=== PATIENT | female | born 1955 | race Caucasian/White ===

== ENCOUNTER 2017-05-09 15:29 | Emergency (ER) | payer OTHER ==
[~2017-05-09] VITALS: Ht 154.9 cm; Wt 77.1 kg
[~2017-05-09 15:29] MED LIST: ADVAIR 100-501 EACH INH; GABAPENTIN300 M2 PO; HYDROXYZINE HCL25 M2 PO; IVERMECTIN PO; MEDROL4 M2 PO; NORCO 325 MG-51 TAB PO; PERMETHRIN60 GM TOP; PREDNISONE10 MG PO; VICODIN5-300 PO; ZOFRAN 4 MG TABL4 MG PO; ZOFRAN ODT4 MG PO
--- NOTE | 2017-05-09 15:55 | ED CARDIAC/CP/PALPITATIONS ---
History of Present Illness General Chief Complaint: General Adult Stated Complaint: MULITPLE COMPLAINTS Source: patient, old records, EMS Exam Limitations: poor historian Vital Signs & Intake/Output Vital Signs & Intake/Output Vital Signs Date Time Temp Pulse Resp B/P B/P Pulse O2 O2 Flow FiO2 Mean Ox Delivery Rate 05/09 2045 96.9 103 18 106/73 96 Room Air 05/09 1847 97.9 100 20 108/73 95 Room Air 05/09 1739 97.3 107 18 125/73 05/09 1612 Room Air 05/09 1546 98.6 102 22 141/67 95 Room Air Allergies Coded Allergies: metaxalone (Severe, SHOCK 11/08/16) naproxen (Intermediate, NAUSEA AND VOMITING 11/08/16) tramadol (Mild, NAUSEA 11/08/16) acetaminophen (From Percocet) (UNKNOWN 11/08/16) oxycodone (From Percocet) (UNKNOWN 11/08/16) NSAIDS (Non-Steroidal Anti-Inflamma (EXTREMELY WEAK 05/09/17) Reconcile Medications Baclofen 10 MG TABLET 1 TAB PO BID MUSCLE RELAXER (Reported) Dicyclomine Hydrochloride (Bentyl) 10 MG CAPSULE 1 CAP PO TID PRN abdominal pain Gabapentin 300 MG CAPSULE 1 CAP PO TID NERVE PAIN (Reported) Ivermectin 3 MG TABLET 5 TAB PO X1 MITES/SCABIES REPEAT IN 1 MONTH. Lidocaine 5 % ADH..PATCH 2 PAT TOP DAILY BACK PAIN (Reported) Omeprazole 20 MG CAPSULE.DR 1 CAP PO DAILY PRN heart burn Triage Note: PT BIBA FROM HOME WITH C/O CHEST PAIN AND SOB. PER EMS, PT WAS WHEEZING ON SCENE; NEBULIZER WITH GOOD EFFECT. UPON PT'S ARRIVAL IN ED, SHE DENIES CHEST PAIN, DESCRIBING IT "TIGHTNESS", BUT COMPLAINS ALSO OF EPIGASTRIC PAIN AND NAUSEA STARTING THIS MORNING, RIGHT-SIDED HEAD PAIN, BILATERAL EYE DISCOMFORT, AND "SKIN CRAWLING" RASH FOR WHICH SHE WAS TREATED IN THIS ED WITHIN THE PAST WEEK. Triage Nurses Notes Reviewed? yes Onset: Abrupt Duration: hour(s): (2-3), better Timing: single episode today Quality/Severity: moderate, dull, pressure Location: epigastric Radiation: no radiation Activities at Onset: none Prior Chest Pain/Card Workup: no prior chest pain Nitro Today/Relief: no nitro taken today Aspirin Today: no aspirin today Associated Symptoms: abdominal pain (epigastric pain), headache, shortness of breath, nausea/vomiting LMP (ages 10-50): post menopausal : No Patient currently breastfeeds: No HPI: 62-year-old female brought in by ambulance for evaluation of chest heaviness and shortness of breath. Patient reports that symptoms started suddenly approximately 2 or 3 hours before she presented. Heaviness is located in the epigastric area and does not radiate. She rates the pain initially as a 6 out of 10 now currently a 2 out of 10. She denies any known alleviating or aggravating factors. She has not take any medicine for the pain. She also reports shortness of breath, wheezing and coughing that started on the same time. Patient was given a DuoNeb by EMS in route with improvement. Patient reports associated nausea without any vomiting which improved with Zofran given by EMS in route. He should also reports abdominal distention. sHe is passing gas normally. Currently patient reports mild epigastric heaviness. Patient was seen emergency Department last week for possible bug bites. She was prescribed permethrin cream which she has used as directed. She still reports feelings of bugs crawling in her hair and itchy eyes. She has tried multiple treatments for this without any improvement. She denies any alcohol or illicit drug use. No fevers, hemoptysis, lower extremity edema, diarrhea, back pain, urinary symptoms or any other associated symptoms. (DELEMR LÓPEZ PA-C) Past History Travel History Traveled to [place] past 21 day No Medical History Any Pertinent Medical History? see below for history Neurological: migraine EENT: NONE Cardiovascular: NONE Respiratory: NONE Gastrointestinal: GERD Hepatic: NONE Renal: NONE Musculoskeletal: DJD OF SPINE AND NECK Psychiatric: depression Endocrine: NONE Blood Disorders: NONE Cancer(s): NONE RESEARCH CONSULTANT/Reproductive: NONE Surgical History Surgical History: CHOLY Psychosocial History What is your primary language Yoruba Family History Hx Contributory? Yes (DELMER LÓPEZ PA-C) Review of Systems Review of Systems Constitutional: Reports: see HPI, malaise, weakness. EENTM: Reports: no symptoms. Respiratory: Reports: see HPI, short of breath. Cardiovascular: Reports: see HPI, chest pain. GI: Reports: see HPI, abdominal pain, bloating, nausea, vomiting. Genitourinary: Reports: no symptoms. Musculoskeletal: Reports: no symptoms. Skin: Reports: no symptoms. Neurological/Psychological: Reports: no symptoms. Hematologic/Endocrine: Reports: no symptoms. Immunologic/Allergic: Reports: no symptoms. All Other Systems: Reviewed and Negative (MARIBEL DEAN,DELMER) Physical Exam Physical Exam General Appearance: well developed/nourished, no apparent distress, alert, awake , anxious, obese Head: atraumatic, normal appearance Eyes: Bilateral: normal appearance, PERRL, EOMI. Ears, Nose, Throat: normal pharynx, normal ENT inspection, hearing grossly normal Neck: normal inspection, supple, full range of motion, no midline tenderness Respiratory: chest non-tender, no respiratory distress, wheezing (MILD) Cardiovascular: regular rate/rhythm, normal peripheral pulses Peripheral Pulses: 2+ dorsalis pedis (R), 2+ dorsalis pedis (L) Gastrointestinal: normal bowel sounds, soft, no organomegaly, distention, tenderness (rlq, llq) Back: normal inspection, normal range of motion, no vertebral tenderness Extremities: normal inspection, normal capillary refill, normal range of motion, no edema Neurologic/Psych: no motor/sensory deficits, awake, alert, oriented x 3, normal gait, normal mood/affect Reflexes: 2+: knee (R), knee (L). Skin: intact, normal color, warm/dry Lymphatic: no anterior cervical verna Core Measures ACS in differential dx? Yes Severe Sepsis Present: No Septic Shock Present: No (MARIBEL DEAN,DELMER) Progress Differential Diagnosis: AMI, aortic dissection, cholecystitis, pancreatitis, pneumonia, pulmonary embolism, PUD/GERD, PVCs/PACs, respiratory failure, unstable angina, sbo, ibd Plan of Care: Orders Procedure Date/time Status TROPONIN LEVEL 05/09 1935 Complete EKG 05/09 193 Active Add-on Test (ER Only) 05/09 1607 Active LIPASE 05/09 1600 Complete C-REACTIVE PROTEIN 05/09 1600 Complete Telemetry/Quantitative Analyst 05/09 1534 Active TROPONIN LEVEL 05/09 1533 Complete D-DIMER 05/09 1533 Complete COMPREHENSIVE METABOLIC PANEL 05/09 1533 Complete CBC WITHOUT DIFFERENTIAL 05/09 1533 Complete B-TYPE NATRIURETIC PEP (BNP) 05/09 1533 Complete EKG 05/09 1533 Active Laboratory Tests 05/09/17 1928: Troponin I < 0.01 05/09/17 1600: Anion Gap 9, Estimated GFR > 60, BUN/Creatinine Ratio 22.0, Glucose 104 H, Calcium 9.0, Total Bilirubin 0.7, AST 30, ALT 58 H, Alkaline Phosphatase 144 H , Troponin I < 0.01, C-Reactive Prot, Quant < 0.5, Qiu-O-Tyovjgwkugs Pept 66.7, Total Protein 6.6, Albumin 3.9, Globulin 2.7, Albumin/Globulin Ratio 1.4, Lipase 84, D-Dimer High Sensitivty < 200, CBC w Diff NO MAN DIFF REQ, RBC 4.53, MCV 91.9, MCH 30.4, RDW 13.3, MPV 9.2, Gran % 68.4, Lymphocytes % 18.9 L, Monocytes % 10.0 H, Eosinophils % 2.0, Basophils % 0.7, Absolute Granulocytes 5.2, Absolute Lymphocytes 1.4, Absolute Monocytes 0.8 H, Absolute Eosinophils 0.2, Absolute Basophils 0.1, PUBS MCHC 33.0 05/09/17 1555: Lipase Cancelled 05/09/17 1533: Urine Color Cancelled, Urine Clarity Cancelled, Urine pH Cancelled, Ur Specific Drain Cancelled, Urine Protein Cancelled, Urine Ketones Cancelled, Urine Nitrite Cancelled, Urine Bilirubin Cancelled, Urine Urobilinogen Cancelled, Ur Leukocyte Esterase Cancelled, Ur Microscopic Cancelled, Urine Hemoglobin Cancelled, Urine Glucose Cancelled Patient will have basic blood work EKG and telemetry monitoring. Her abdomen is distended and diffusely tender to palpation. She will get a noncontrast CT of the abdomen and pelvis. Her d-dimer is less than 200 and suspicion for PE is low. 6:37 PM: CT of the abdomen and pelvis shows evidence of enteritis. No small bowel obstruction. Initial lab work is looking within normal limits. Patient have a repeat EKG and troponin to rule out acute coronary syndrome. Patient reports that she is having symptoms of acid reflux. She feels burning in her throat. She'll be given a GI cocktail and IV Protonix. We'll reevaluate her after meds are given. 8:34 PM: Patient is feeling completely better after GI cocktail and IV Protonix. Patient will be discharged home with Bentyl and omeprazole to use for symptoms. Advised her to follow up with her primary care doctor this coming week. Reviewed all results with patient. She is nontoxic-appearing and agrees with the plan. (MARIBEL DEAN,DELMER) Diagnostic Imaging: Viewed by Me: Radiology Read, CT Scan. Initial ED EKG: NORMAL SINUS RHYTHM WITH PVC Repeat EKG: unchanged Comments: PATIENT: DAVID ALMENDAREZ PRESENT AGE: 62 PATIENT ACCOUNT NO: [id number] : 55 LOCATION: ER ORDERING PHYSICIAN: DELMER LÓPEZ PA-C SERVICE DATE: 05/09/17 EXAM TYPE: RAD - XRY-PORTABLE CHEST XRAY EXAMINATION: XR PORTABLE CHEST CLINICAL INFORMATION: Chest pain, shortness of breath. COMPARISON: Chest x-ray 02/11/2013 TECHNIQUE: Portable frontal view of the chest was obtained. 3:55 PM FINDINGS: No significant abnormality is noted involving the heart, lungs, mediastinum, bony thorax or soft tissues. IMPRESSION: Unremarkable examination. DICTATED BY: CRISTINE MARTINEZ MD DATE/TIME DICTATED:05/09/171639 FLOOR CLEANER:SANDRA DATE/TIME TRANSCRIBED:05/09/171639 CONFIDENTIAL, DO NOT COPY WITHOUT APPROPRIATE AUTHORIZATION. PATIENT: DAVID ALMENDAREZ PRESENT AGE: 62 PATIENT ACCOUNT NO: [id number] : 55 LOCATION: [facility] ORDERING PHYSICIAN: DELMER LÓPEZ PA-C SERVICE DATE: 05/09/17 EXAM TYPE: CAT - CT ABD & PELVIS W/O IV CONTRAS CT ABDOMEN AND PELVIS WITHOUT CONTRAST CLINICAL INFORMATION: Distention and bilateral pelvic pain. COMPARISON: Abdominal CT 07/22/2015. TECHNIQUE: Multidetector volumetric imaging was performed from the superior aspect of the liver through the pubic symphysis. Sagittal and coronal reformatted images were obtained on the technologist's workstation. FINDINGS: The lung bases are clear. Limited evaluation of the unenhanced liver, spleen, adrenal glands, and pancreas reveals no definite abnormality. Gallbladder is surgically absent. The kidneys are symmetric in size without evidence of hydronephrosis or nephrolithiasis. The large and small bowel are normal in caliber without evidence of mechanical obstruction. There is a small periampullary duodenal diverticulum. Nonspecific fluid-filled small bowel loops throughout the abdomen without abnormal small bowel dilatation, findings that could reflect an underlying enteritis. No discrete transition point. Sigmoid diverticulosis without evidence of acute diverticulitis. The appendix is normal. There is no free air and there is no intra-abdominal free fluid. No mesenteric or retroperitoneal adenopathy. There is aortoiliac atherosclerotic calcification. The pelvic viscera are normal. No pelvic adenopathy. No free fluid within the pelvis. There are no acute osseous abnormalities. 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 No significant soft tissue abnormality. IMPRESSION: - Nonspecific fluid-filled small bowel loops throughout the abdomen without abnormal small bowel dilatation, findings that could reflect an underlying enteritis. No discrete transition point. - Sigmoid diverticulosis without evidence of acute diverticulitis. 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 DICTATED BY: MICHAEL NEWSOME MD DATE/TIME DICTATED:05/09/171822 FLOOR CLEANER:SANDRA DATE/TIME TRANSCRIBED:05/09/171822 CONFIDENTIAL, DO NOT COPY WITHOUT APPROPRIATE AUTHORIZATION. <Electronically signed in Other Vendor System> SIGNED BY: MICHAEL NEWSOME MD 05/09/17 8028 (DELMER LÓPEZ PA-C) Departure Departure Disposition: HOME OR SELF CARE Condition: Stable Clinical Impression Primary Impression: Abdominal pain Qualifiers: Abdominal location: epigastric Qualified Code: R10.13 - Epigastric pain Referrals: PATIENT HAS NO PRIMARY CARE DR (PCP/Family) Additional Instructions: Rest and drink plenty of fluids. Use Bentyl and omeprazole as needed for abdominal pain. Make a follow-up with her primary care doctor this coming week. Return to the emergency department with any concerns. Please go over all results of today's visit with your primary care doctor. Contact your primary care doctor to let them know you were here in the emergency room. There may be nonspecific findings which may not be related to your visit today here in the emergency room but may require further evaluation and chronic monitoring by your primary care doctor. If you had a laceration today the chance of foreign body always remains. You should follow-up with your primary care doctor for recheck in 3-5 days for a wound check. If you had an x-ray done there is a chance that a fracture could have been missed on initial read and you should follow-up with your primary care doctor for repeat x-rays if symptoms persist. If your blood pressure was elevated here in the emergency room please have rechecked by her primary care doctor within the next 48 hours by your primary care doctor. If you were prescribed a narcotic here in the emergency room or any type of controlled substances you're not allowed to drive while taking this medication or operate any type of heavy machinery. Narcotics can make you feel lightheaded dizziness nausea and can cause constipation. You may need to pickle solution maker a stool softener. Thank you for choosing [facility] emergency room. Please return to the emergency room immediately if you have any other concerns worsening of symptoms. Departure Forms: Customer Survey General Discharge Information Prescriptions: Current Visit Scripts Dicyclomine Hydrochloride (Bentyl) 1 CAP PO TID PRN abdominal pain #30 CAP Omeprazole 1 CAP PO DAILY PRN heart burn #30 CAP (DELMER LÓPEZ PA-C) PA/HYDRAULIC TECHNICIAN Co-Sign Statement Statement: ED Attending supervision documentation- x I saw and evaluated the patient. I have also reviewed all the pertinent lab results and diagnostic results. I agree with the findings and the plan of care as documented in the PA's/HYDRAULIC TECHNICIAN's documentation. [] I have reviewed the ED Record and agree with the PA's/HYDRAULIC TECHNICIAN's documentation. [] Additions or exceptions (if any) to the PAs/HYDRAULIC TECHNICIAN's note and plan are summarized below: [] (JUANITA SALAZAR,LAURA) Critical Care Note Critical Care Note Critical Care Time: non-applicable (DELMER LÓPEZ PA-C)
[2017-05-09 16:13] LABS: ABSOLUTE BASOPHIL COUNT 0.1 /CUMM (0.0-0.2); ABSOLUTE EOSINOPHIL COUNT 0.2 /CUMM (0.0-0.7); ABSOLUTE GRANULOCYTE CT 5.2 /CUMM (1.4-6.5); ABSOLUTE LYMPH COUNT 1.4 /CUMM (1.2-3.4); ABSOLUTE MONOCYTE COUNT 0.8 /CUMM (0.10-0.60); BASOPHIL % 0.7 % (0.0-2.0); GRANULOCYTE % 68.4 % (42.2-75.2); HEMATOCRIT 41.7 % (37-47); MEAN CORPUSCULAR HGB 30.4 PG (27.0-31.0); MEAN CORPUSCULAR VOLUME 91.9 FL (81.0-99.0); MEAN PLATELET VOLUME 9.2 FL (7.4-10.4); PLATELET COUNT 196 /CUMM (130-400); RBC DISTRIBUTION WIDTH 13.3 % (11.5-14.5); RED BLOOD CELL CT 4.53 /CUMM (4.20-5.40); WHITE BLOOD CELL COUNT 7.7 /CUMM (4.8-10.8)
[2017-05-09] MEDS ORDERED: BACLOFEN10 M1 PO (16:33)
[2017-05-09] MEDS ORDERED: LIDOCAINE1 EACH TOP (16:38)
--- NOTE | 2017-05-09 16:43 | RADIOLOGY REPORT ---
EXAMINATION: XR PORTABLE CHEST CLINICAL INFORMATION: Chest pain, shortness of breath. COMPARISON: Chest x-ray 02/11/2013 TECHNIQUE: Portable frontal view of the chest was obtained. 3:55 PM FINDINGS: No significant abnormality is noted involving the heart, lungs, mediastinum, bony thorax or soft tissues. IMPRESSION: Unremarkable examination.
--- NOTE | 2017-05-09 18:34 | CT SCAN REPORT ---
CT ABDOMEN AND PELVIS WITHOUT CONTRAST CLINICAL INFORMATION: Distention and bilateral pelvic pain. COMPARISON: Abdominal CT 07/22/2015. TECHNIQUE: Multidetector volumetric imaging was performed from the superior aspect of the liver through the pubic symphysis. Sagittal and coronal reformatted images were obtained on the technologist's workstation. FINDINGS: The lung bases are clear. Limited evaluation of the unenhanced liver, spleen, adrenal glands, and pancreas reveals no definite abnormality. Gallbladder is surgically absent. The kidneys are symmetric in size without evidence of hydronephrosis or nephrolithiasis. The large and small bowel are normal in caliber without evidence of mechanical obstruction. There is a small periampullary duodenal diverticulum. Nonspecific fluid-filled small bowel loops throughout the abdomen without abnormal small bowel dilatation, findings that could reflect an underlying enteritis. No discrete transition point. Sigmoid diverticulosis without evidence of acute diverticulitis. The appendix is normal. There is no free air and there is no intra-abdominal free fluid. No mesenteric or retroperitoneal adenopathy. There is aortoiliac atherosclerotic calcification. The pelvic viscera are normal. No pelvic adenopathy. No free fluid within the pelvis. There are no acute osseous abnormalities. 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 No significant soft tissue abnormality. IMPRESSION: - Nonspecific fluid-filled small bowel loops throughout the abdomen without abnormal small bowel dilatation, findings that could reflect an underlying enteritis. No discrete transition point. - Sigmoid diverticulosis without evidence of acute diverticulitis. 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
[2017-05-09] MEDS ORDERED: BENTYL10 M1 PO (20:42)
[2017-05-09] MEDS ORDERED: OMEPRAZOLE20 M2 PO (20:42)
[2017-05-09 20:45] VITALS: BP 106/73
== END 2017-05-09 20:47 ==
LOC: ERH 15:29
PROVIDERS: Physician Assistant Medical
DX: R10.31 Right lower quadrant pain (principal); R10.32 Left lower quadrant pain
CPT/HCPCS: 74176; 93005; 93010; 96374